=== PATIENT | male | born 1955 | race Caucasian/White ===

== ENCOUNTER 2022-04-10 06:34 | Observation (INO) | payer BC, MEDICARE ==
[2022-04-10 07:35] LABS: #Eosinphils 0.1 thou/uL (0.0-0.7); #Lymphocytes 1.6 thou/uL (1.20-3.40); #Monocytes 0.6 thou/uL (0.11-0.59); #Neutrophils 6.1 thou/uL (1.40-6.50); %Basophils 0.3 % (0.0-1.0); %Eosinophils 1.6 % (0.0-10.0); %Lymphocytes 19.2 % (21.0-51.0); Hemoglobin 14.1 g/dL (14.0-18.0); Mean Corpuscular HGB CONC 32.7 g/dL (32.0-36.0); Mean Corpuscular Hemoglobin 30.1 pg (27.0-31.0); Mean Corpuscular Volume 92.2 fL (78.0-98.0); Mean Platelet Volume 8.6 fL (7.4-10.4); Platelet Count 165 thou/uL (130-400); RBC Distribution Width 12.9 % (11.5-14.5); Red Blood Cell (RBC) Count 4.69 mill/uL (4.70-6.10); White Blood Cell (WBC) Count 8.4 thou/uL (4.8-10.8)
[2022-04-10 07:50] LABS: ALT (SGPT) 25 U/L (8-55); AST (SGOT) 20 U/L (5-34); Albumin 4.2 g/dL (3.4-4.8); Alkaline Phosphatase 74 U/L (40-110); Anion Gap 15 mmol/L (10-20); BUN (Urea Nitrogen) 15 mg/dL (8.4-25.7); Bilirubin, Total 0.6 mg/dL (0.2-1.2); Calc. Creatinine Clearance 0 mL/min (70-130); Calcium 9.2 mg/dL (7.8-10.44); Carbon Dioxide 26 mmol/L (23-31); Chloride 106 mmol/L (98-107); Estimated GFR 98; Globulin 2.6 g/dL (2.4-3.5); Glucose 128 mg/dL (80-115); Potassium 4.5 mmol/L (3.5-5.1); Protein, Total 6.8 g/dL (5.8-8.1); Sodium 142 mmol/L (136-145)
[2022-04-10] MEDS ORDERED: CEFAZOLIN 2 GM VIAL ONE (08:00)
[2022-04-10] MEDS ORDERED: Acetaminophen 325 MG TAB PO PRN (09:36)
[2022-04-10] MEDS ORDERED: Ondansetron PF 4 MG/2 ML Vial IVP PRN (09:36)
[2022-04-10] MEDS ORDERED: HYDROcodone/Acetaminophen 5/325 mg Tablet ONE ×2 (09:59→14:52)
[2022-04-10] MEDS: HYDROcodone/Acetaminophen 5/325 mg Tablet PO PRN ×2 (14:49→20:14)
[2022-04-10 17:34] VITALS: BMI 35.5
[2022-04-11] MEDS: HYDROcodone/Acetaminophen 5/325 mg Tablet PO PRN ×4 (02:06→20:03)
[2022-04-11 04:47] LABS: #Eosinphils 0.2 thou/uL (0.0-0.7); #Monocytes 0.8 thou/uL (0.11-0.59); #Neutrophils 4.4 thou/uL (1.40-6.50); %Basophils 0.1 % (0.0-1.0); %Eosinophils 2.4 % (0.0-10.0); %Lymphocytes 27.3 % (21.0-51.0); %Monocytes 10.6 % (0.0-10.0); %Neutrophils 59.5 % (42.0-75.0); Hemoglobin 12.9 g/dL (14.0-18.0); Mean Corpuscular HGB CONC 33.1 g/dL (32.0-36.0); Mean Corpuscular Hemoglobin 31.2 pg (27.0-31.0); Mean Corpuscular Volume 94.2 fL (78.0-98.0); Mean Platelet Volume 8.1 fL (7.4-10.4); Platelet Count 158 thou/uL (130-400); Red Blood Cell (RBC) Count 4.15 mill/uL (4.70-6.10); White Blood Cell (WBC) Count 7.3 thou/uL (4.8-10.8)
[2022-04-11 05:12] LABS: Anion Gap 16 mmol/L (10-20); BUN (Urea Nitrogen) 13 mg/dL (8.4-25.7); Calc. Creatinine Clearance 146 mL/min (70-130); Calcium 8.9 mg/dL (7.8-10.44); Carbon Dioxide 24 mmol/L (23-31); Chloride 102 mmol/L (98-107); Estimated GFR 99; Glucose 101 mg/dL (80-115); Potassium 4.6 mmol/L (3.5-5.1); Sodium 137 mmol/L (136-145)
[2022-04-11 11:59] LABS: SARS-CoV-2 PCR NAA for Saliva Not Detected (NotDetected)
[2022-04-11] MEDS: Midodrine HCl 5 MG TAB PO SCH ×2 (14:07→20:03)
[2022-04-11] MEDS: Enoxaparin Sodium 30 MG/0.3 ML SYRINGE SC SCH (14:08)
[2022-04-12 08:53] LABS: #Eosinphils 0.2 thou/uL (0.0-0.7); #Lymphocytes 1.7 thou/uL (1.20-3.40); #Monocytes 0.5 thou/uL (0.11-0.59); #Neutrophils 4.7 thou/uL (1.40-6.50); %Basophils 0.5 % (0.0-1.0); %Eosinophils 2.2 % (0.0-10.0); %Lymphocytes 23.4 % (21.0-51.0); %Neutrophils 66.8 % (42.0-75.0); Hemoglobin 14.6 g/dL (14.0-18.0); Mean Corpuscular HGB CONC 33.8 g/dL (32.0-36.0); Mean Corpuscular Hemoglobin 31.2 pg (27.0-31.0); Mean Corpuscular Volume 92.2 fL (78.0-98.0); Mean Platelet Volume 8.3 fL (7.4-10.4); Platelet Count 157 thou/uL (130-400)
[2022-04-12 09:07] LABS: ALT (SGPT) 29 U/L (8-55); AST (SGOT) 33 U/L (5-34); Albumin 4.2 g/dL (3.4-4.8); Alkaline Phosphatase 72 U/L (40-110); Anion Gap 15 mmol/L (10-20); BUN (Urea Nitrogen) 12 mg/dL (8.4-25.7); Bilirubin, Total 0.5 mg/dL (0.2-1.2); Calc. Creatinine Clearance 146 mL/min (70-130); Calcium 9.2 mg/dL (7.8-10.44); Carbon Dioxide 23 mmol/L (23-31); Chloride 102 mmol/L (98-107); Estimated GFR 99; Glucose 117 mg/dL (80-115); Potassium 4.7 mmol/L (3.5-5.1); Protein, Total 7.2 g/dL (5.8-8.1); Sodium 135 mmol/L (136-145)
[2022-04-12] MEDS: Midodrine HCl 5 MG TAB PO SCH (10:00)
[2022-04-12] MEDS: Enoxaparin Sodium 30 MG/0.3 ML SYRINGE SC SCH (10:02)
[2022-04-12] MEDS: HYDROcodone/Acetaminophen 5/325 mg Tablet PO PRN (10:04)
[2022-04-12 16:41] VITALS: BP 141/68; TEMP 97.8
[2022-04-12] MEDS ORDERED: Lisinopril 10 MG TAB PO SCH (21:00)
== END 2022-04-12 16:10 | disposition home or self-care (01) ==
LOC: ERS 06:34 → ERHOLD 08:11 → 2SW 17:24
PROVIDERS: ADMIT Student in an Organized Health Care Education/Training Program; ATTEND Student in an Organized Health Care Education/Training Program
DX: S02.2XXA Fracture of nasal bones, initial encounter for closed fracture (principal); S01.81XA Laceration without foreign body of other part of head, initial encounter; I95.1 Orthostatic hypotension; I10 Essential (primary) hypertension; E78.2 Mixed hyperlipidemia; Z79.899 Other long term (current) drug therapy; Z88.0 Allergy status to penicillin; Z88.5 Allergy status to narcotic agent; W18.30XA Fall on same level, unspecified, initial encounter; Y92.002 Bathroom of unspecified non-institutional (private) residence as the place of occurrence of the external cause
CPT/HCPCS: 12014; 36415; 70450; 70486; 71045; 72125; 80048; 80053; 84484; 85025; 93005; 96365; G0378; J0690; U0003; U0005

== ENCOUNTER 2022-08-24 19:00 | Outpatient (CLI) | payer BC | END 2022-08-24 19:01 | disposition home or self-care (01) | LOC: SLEEPLAB 19:00 | PROVIDERS: ATTEND Family Medicine | DX: G47.9 Sleep disorder, unspecified (principal); R53.83 Other fatigue; E66.9 Obesity, unspecified; R06.83 Snoring; G47.00 Insomnia, unspecified; I10 Essential (primary) hypertension; G47.10 Hypersomnia, unspecified; G47.61 Periodic limb movement disorder; Z68.36 Body mass index [BMI] 36.0-36.9, adult | CPT/HCPCS: 95811 ==

== ENCOUNTER 2023-11-28 13:19 | Outpatient (CLI) | payer BC | END 2023-11-28 13:20 | disposition home or self-care (01) | LOC: BICRAD 13:19 | PROVIDERS: ATTEND Internal Medicine Rheumatology | DX: M25.531 Pain in right wrist (principal); M25.532 Pain in left wrist; M19.032 Primary osteoarthritis, left wrist ==

== ENCOUNTER 2023-12-07 08:57 | Outpatient (CLI) | payer BC | END 2023-12-07 08:58 | disposition home or self-care (01) | LOC: BICRAD 08:57 | PROVIDERS: ATTEND Family Medicine | DX: M25.561 Pain in right knee (principal); M17.11 Unilateral primary osteoarthritis, right knee ==

== ENCOUNTER 2024-07-18 15:16 | Outpatient (CLI) | payer BC | END 2024-07-18 15:17 | disposition home or self-care (01) | LOC: BICRAD 15:16 | PROVIDERS: ATTEND Internal Medicine Rheumatology | DX: M54.50 Low back pain, unspecified (principal); M46.1 Sacroiliitis, not elsewhere classified; M16.0 Bilateral primary osteoarthritis of hip; M47.816 Spondylosis without myelopathy or radiculopathy, lumbar region | CPT/HCPCS: 72100; 72202 ==